=== PATIENT | female | born 1990 | race Caucasian/White ===

== ENCOUNTER 2018-04-16 17:17 | Emergency (ER) | payer OTHER ==
[2018-04-16] MEDS ORDERED: RANITIDINE 50 MG/2 ML VIAL IVP ONE (17:23)
[2018-04-16] MEDS ORDERED: NS 1,000 ML IV ONE (17:23)
[2018-04-16] MEDS ORDERED: methylPREDNISolone SOD SUCC 125 MG/2 ML VIAL IVP ONE (17:23)
--- NOTE | 2018-04-16 17:28 | EDPHY ---
H & P Time Seen by Provider: 04/16/18 17:23 HPI/ROS: CHIEF COMPLAINT: Allergic reaction HISTORY OF PRESENT ILLNESS: Patient is a 27-year-old female with no significant past medical history who comes in to the emergency department emergently for an allergic reaction. She was working out when she became itchy and developed hives. She went next door to [employer] and took 3 Benadryl tablets. Her symptoms progressed however and 911 was called. She developed some swelling in her lips and eyes. Paramedics found her slightly hypotensive at 98 systolic. They administered 0.3 mg epinephrine IM as well as 50 mg Benadryl IM. The patient was not hypoxic wheezing. She states that she is now starting to feel little bit better but is cold and shaking. She states that she had a mild allergic reaction 1 several years ago also while working out. She has worked out in the same place however multiple times without such reactions. She has no known food or medication allergies. She did not eat anything unusual today. Severity: Moderate Modifying factors: None REVIEW OF SYSTEMS: Constitutional: denies: chills, fever, recent illness, recent injury EENTM: See HPI Respiratory: denies: cough, shortness of breath Cardiac: denies: chest pain, irregular heart rate, lightheadedness, palpitations Gastrointestinal/Abdominal: denies: abdominal pain, diarrhea, nausea, vomiting, blood streaked stools Genitourinary: denies: dysuria, frequency, hematuria, pain Musculoskeletal: denies: joint pain, muscle pain Skin: See HPI Neurological: denies: headache, numbness, paresthesia, tingling, dizziness, weakness Hematologic/Lymphatic: denies: blood clots, easy bleeding, easy bruising Immunologic/allergic: denies: HIV/AIDS, transplant 10 systems reviewed and negative except as noted EXAM: GENERAL: Well-appearing, well-nourished and in no acute distress. HEAD: Atraumatic, normocephalic. EYES: Slight edema in upper and lower eyelids bilaterally, Pupils equal round and reactive to light, extraocular movements intact, sclera anicteric, conjunctiva are normal. ENT: TMs normal, nares patent, oropharynx clear without exudates. Moist mucous membranes. NECK: Normal range of motion, supple without lymphadenopathy or JVD. LUNGS: Breath sounds clear to auscultation bilaterally and equal. No wheezes rales or rhonchi. HEART: Regular rate and rhythm without murmurs, rubs or gallops. ABDOMEN: Soft, nontender, normoactive bowel sounds. No guarding, no rebound. No masses appreciated. BACK: No CVA tenderness, no spinal tenderness, step-offs or deformities EXTREMITIES: Normal range of motion, no pitting or edema. No clubbing or cyanosis. NEUROLOGICAL: Cranial nerves II through XII grossly intact. Normal speech, normal gait. 5/5 strength, normal movement in all extremities, normal sensation , normal reflexes PSYCH: Normal mood, normal affect. SKIN: Diffuse mild erythema, blanching Source: Patient, EMS Exam Limitations: No limitations - Medical/Surgical History Hx Asthma: No Hx Chronic Respiratory Disease: No Hx Diabetes: No Hx Cardiac Disease: No Hx Renal Disease: No Hx Cirrhosis: No Hx Alcoholism: No Hx HIV/AIDS: No - Family History Significant Family History: No pertinent family hx - Social History Alcohol Use: Sober Drug Use: None Constitutional: Initial Vital Signs Temperature (C) 36.8 C 04/16/18 17:19 Heart Rate 125 H 04/16/18 17:19 Respiratory Rate 18 04/16/18 17:19 Blood Pressure 129/96 H 04/16/18 17:19 O2 Sat (%) 96 04/16/18 17:19 O2 Delivery Mode Room Air Allergies/Adverse Reactions: No Known Allergies Allergy (Unverified 04/16/18 17:42) Home Medications: Medication Instructions Recorded EPINEPHrine [Epipen 0.3 MG] 0.3 mg IM ONCE #2 syr 04/16/18 diphenhydrAMINE [Benadryl 50 MG 50 mg PO Q4-6PRN PRN #30 cap 04/16/18 (OTC)] predniSONE 60 mg PO DAILY #9 tab 04/16/18 Medical Decision Making ED Course/Re-evaluation: 6:00 p.m. the patient is doing well. Her erythema has resolved. She still has slight edema in her eyelids. No difficulty breathing or intraoral swelling will continue to observe. 7:15 p.m. the patient continues to do well. She is currently asymptomatic. She is eager to go home. We discussed continued to take Benadryl over-the- counter as well as prednisone. We discussed indications for returning. We discussed follow-up with immunology for allergy testing. She agrees this plan. Differential Diagnosis: Partial list of the Differential diagnosis considered include but were not limited to; anaphylaxis, urticaria medication reaction, environmental exposure and although unlikely based on the history and physical exam, I also considered hereditary angioedema, Rushing Dougie's. I discussed these differential diagnoses and the plan with the patient as well as the usual and expected course. The patient understands that the diagnosis is provisional and that in medicine we are not always correct and that further workup is often warranted. Usual and customary warnings were given. All of the patient's questions were answered. The patient was instructed to return to the emergency department should the symptoms at all worsen or return, otherwise to followup with the physician as we discussed. - Data Points Medications Given: Discontinued Medications Sodium Chloride (Ns) 1,000 mls @ 0 mls/hr IV ONCE ONE; Wide Open PRN Reason: Protocol Stop: 04/16/18 17:24 Last Admin: 04/16/18 17:30 Dose: 1,000 mls Methylprednisolone Sodium Succinate (Solu-Medrol) 125 mg IVP EDNOW ONE Stop: 04/16/18 17:24 Last Admin: 04/16/18 17:29 Dose: 125 mg Ranitidine HCl (Zantac) 50 mg IVP EDNOW ONE Stop: 04/16/18 17:24 Last Admin: 04/16/18 17:30 Dose: 50 mg Departure - Departure Disposition: Home, Routine, Self-Care Clinical Impression: Acute anaphylaxis Qualifiers: Encounter type: initial encounter Qualified Code(s): T78.2XXA - Anaphylactic shock, unspecified, initial encounter Condition: Fair Instructions: Anaphylaxis (ED) Referrals: Patient,NotPresent [Unknown] - As per Instructions Mady Oliveira MD [[facility] [place] Primary Care Provider] - 5-7 days, call for appt. Prescriptions: diphenhydrAMINE [Benadryl 50 MG (OTC)] 50 mg PO Q4-6PRN PRN #30 cap PRN Reason: Itching EPINEPHrine [Epipen 0.3 MG] 0.3 mg IM ONCE #2 syr predniSONE 60 mg PO DAILY #9 tab
[2018-04-16 18:39] VITALS: BP 126/68
== END 2018-04-16 19:35 | disposition home or self-care (01) ==
DX: T78.2XXA Anaphylactic shock, unspecified, initial encounter (principal); E86.9 Volume depletion, unspecified
CPT/HCPCS: 96374; J2780; J2930